=== PATIENT | female | born 1990 | race Caucasian/White ===

== ENCOUNTER 2021-02-05 04:08 | Emergency (ER) | payer BC ==
[~2021-02-05] VITALS: Ht 170.2 cm; Wt 76.7 kg
[2021-02-05] MEDS ORDERED: PYRIDIUM DS200 MG PO (05:32)
[2021-02-05] MEDS ORDERED: CEFUROXIME500 MG PO (05:32)
== END 2021-02-05 05:38 | disposition home or self-care (01) ==
LOC: ER 04:08
DX: N30.81 Other cystitis with hematuria (principal)